=== PATIENT | male | born 1990 | race Caucasian/White ===

== ENCOUNTER 2019-04-29 20:08 | Emergency (ER) | payer SELFPAY ==
[~2019-04-29] VITALS: Ht 167.6 cm; Wt 63.6 kg
[~2019-04-29 20:08] MED LIST: DOXYCYCLINE 10100 MG PO; NO HOME MEDICATIONS
[2019-04-29 20:18] VITALS: TEMP 98
[2019-04-30 06:50] VITALS: BP 121/80; PULSE 104
== END 2019-04-30 06:54 | disposition home or self-care (01) ==
LOC: COL.ER 20:08
DX: F15.10 Other stimulant abuse, uncomplicated (principal); F22 Delusional disorders; F41.9 Anxiety disorder, unspecified; B19.20 Unspecified viral hepatitis C without hepatic coma